=== PATIENT | female | born 1980 | race Caucasian/White ===

== ENCOUNTER 2017-02-26 20:44 | Emergency (ER) | payer MEDICAID ==
[~2017-02-26] VITALS: Ht 160 cm; Wt 90.5 kg
[~2017-02-26 20:44] MED LIST: FERR-31 PO; PRENAT PO
[2017-02-26 20:55] VITALS: Ht 160 cm; Wt 90.5 kg
[2017-02-26] MEDS ORDERED: IPRATROPIUM (NEB) 0.5 MG/2.5 ML AMP NEB STA (21:42)
[2017-02-26] MEDS ORDERED: ALBUTEROL 0.083% (NEB) 2.5 MG/3 ML AMP NEB STA (21:42)
--- NOTE | 2017-02-26 21:55 | ERD ---
ER Documentation Chief Complaint Date/Time DATE: 02/26/17 TIME: 21:54 Chief Complaint cough with on and off fever x 4 days HPI 37-year-old female presents here in emergency department for complaints of cough and fever for 4 days. Patient is having dry cough, on and off wheezing. Patient does not have any sick contacts. Patient has been having on and off fever. Patient did not take any medications to help with symptoms. Patient denies any dyspnea on exertion or dyspnea on lying down. ROS All systems reviewed and are negative except as per history of present illness. Medications Home Meds Reported Medications Ferrous Sulfate (Iron Supplement) 1 Tab Tablet, 1 TAB PO DAILY, TAB 02/22/16 Multivit/Min/Fol Ac/Iron/Pren* ( S*) 1 Tab Tab, 1 TAB PO DAILY, TAB 02/22/16 Allergies Allergies: Coded Allergies: No Known Allergy (Unverified , 02/22/16) PMhx/Soc Medical and Surgical Hx: pt denies Medical Hx, pt denies Surgical Hx FmHx Family History: No coronary disease, No diabetes, No other Physical Exam Vitals Vital Signs Date Time Temp Pulse Resp B/P Pulse Ox O2 Delivery O2 Flow Rate FiO2 02/26/17 22:04 92 18 97 21 02/26/17 20:55 98.9 97 20 136/88 98 Physical Exam GENERAL: The patient is well developed and appropriate for usual state of health, in no apparent distress. CHEST: Diffuse wheezing noted bilaterally. There are no rales, crackles or rhonchi. HEART: Regular rate and rhythm. No murmurs, clicks, rubs or gallops. No S3 or S4. ABDOMEN: Soft, nontender and nondistended. Good bowel sounds. No rebound or guarding. No gross peritonitis. No gross organomegaly or masses. No Kim sign or McBurney point tenderness. BACK: No midline or flank tenderness. EXTREMITIES: Equal pulses bilaterally. There is no peripheral clubbing, cyanosis or edema. No focal swelling or erythema. Full range of motion. Grossly neurovascularly intact. NEURO: Alert and oriented. Cranial nerves 2-12 intact. Motor strength in all 4 extremities with 5/5 strength. Sensation grossly intact. Normal speech and gait. SKIN: There is no apparent rash or petechia. The skin is warm and dry. HEMATOLOGIC AND LYMPHATIC: There is no evidence of excessive bruising or lymphedema. No gross cervical, axillary, or inguinal lymphadenopathy. Results 24 hrs Current Medications Medications (Trade) Dose Ordered Sig/Katty Route PRN Reason Start Time Stop Time Status Last Admin Dose Admin Albuterol (Proventil 0.083% (Neb)) 5 mg ONCE STAT NEB 02/26/17 21:42 02/26/17 21:44 DC 02/26/17 21:59 Ipratropium [place] (Atrovent 0.02% (Neb)) 0.5 mg ONCE STAT NEB 02/26/17 21:42 02/26/17 21:44 DC 02/26/17 21:59 Guaifenesin/ Codeine Phosphate (Robitussin Ac Liquid Cup) 10 ml ONCE ONCE PO 02/26/17 22:00 02/26/17 22:01 DC 02/26/17 22:01 Breathing treatment of albuterol and Atrovent was given here in emergency department, after treatment, patient's lungs sounds are clear and patient's oxygenation is better. Patient verbalized feeling much better. Guaifenesin with codeine was given here in emergency department. PROCEDURE: XR Chest. CLINICAL INDICATION: Chest pain. Asthma exacerbation TECHNIQUE: Portable AP upright view of the chest was obtained. COMPARISON: None. FINDINGS: The cardiomediastinal silhouette is within normal limits. The lungs are clear. There is no evidence for pleural effusion, pneumothorax or pulmonary vascular congestion. The osseous structures are intact with no evidence for acute abnormality. RPTAT:HJJR IMPRESSION: No evidence for acute intrathoracic pathology. Physician Gladys Date Time Electronically viewed and signed by Physician Gladys on 02/26/2017 22:41 JR/ CC: GONZALO KOEHLER [employer]IOR [employer] Procedures/MDM Medical Decision Making: Patient symptoms are most likely consistent with acute bronchitis, which viral in origin. There is low suspicion for Pneumonia at this time since patients lungs sounds are clear, patient O2 saturation is normal and patient doesnt show any respiratory distress. Patients chest xray doesnt show infiltrates or any other cardiopulmonary emergencies at this time. There is low suspicion for other cardiopulmonary emergencies at this time such as CHF, Pulmonary Embolism, Pneumothorax, Aortic Aneurysm or any other cardiopulmonary emergencies at this time. There is low suspicion for sepsis. Patient appears well and is hemodynamically stable. Fever is controlled with medicines. Disposition: Home. Condition: Stable Prescriptions: Albuterol, guaifenesin with codeine, Zyrtec, ibuprofen Instructions: Patient is advised to take medications as prescribed. Patient is advised to rest. Patient advised to increase fluid intake, do humidifier at home and if possible, do salt water gargles. Patient is advised that if symptoms are worse, shortness of breath, uncontrolled fever, stridor, vomiting, worst signs and symptoms to return to emergency department immediately. Otherwise, patient is advised to follow up with primary doctor in 5-7 days. Departure Diagnosis: Primary Impression: Acute bronchitis Bronchitis organism: unspecified organism Qualified Code: J20.9 - Acute bronchitis, unspecified organism Condition: Stable Patient Instructions: Bronchitis With Wheezing (Adult) Additional Instructions: Patient is advised to take medications as prescribed. Patient is advised to rest. Patient advised to increase fluid intake, do humidifier at home and if possible, do salt water gargles. Patient is advised that if symptoms are worse, shortness of breath, uncontrolled fever, stridor, vomiting, worst signs and symptoms to return to emergency department immediately. Otherwise, patient is advised to follow up with primary doctor in 5-7 days. GONZALO KOEHLER NP February 26, 2017 21:55
[2017-02-26] MEDS ORDERED: GUAIFENESIN/CODEINE 5ML CUP PO ONE (22:00)
--- NOTE | 2017-02-26 22:42 | RADRPT ---
PROCEDURE: XR Chest. CLINICAL INDICATION: Chest pain. Asthma exacerbation TECHNIQUE: Portable AP upright view of the chest was obtained. COMPARISON: None. FINDINGS: The cardiomediastinal silhouette is within normal limits. The lungs are clear. There is no evidenc e for pleural effusion, pneumothorax or pulmonary vascular congestion. The osseous structures are i ntact with no evidence for acute abnormality. RPTAT:HJJR IMPRESSION: No evidence for acute intrathoracic pathology. Physician Gladys Date Time Electronically viewed and signed by Wagner Parikh Physician on 02/26/2017 22:41 JR/
[2017-02-26] MEDS ORDERED: CETI10CA PO (22:57)
[2017-02-26] MEDS ORDERED: ALBU8.5H3 INH (22:57)
[2017-02-26] MEDS ORDERED: IBUP-1542 PO (22:57)
[2017-02-26] MEDS ORDERED: GUAI473L22 PO (22:57)
[2017-02-26 23:20] VITALS: BP 122/76; PULSE 121; RESP 20; TEMP 98.9
== END 2017-02-26 22:57 | disposition home or self-care (01) ==
LOC: FTE 20:44
DX: J20.9 Acute bronchitis, unspecified (principal)
CPT/HCPCS: 71010; 94664; Z7502; Z7610

== ENCOUNTER 2018-09-21 09:21 | Emergency (ER) | END 2018-09-21 13:59 | disposition home or self-care (01) ==